=== PATIENT | female | born 1995 | race Caucasian/White ===

== ENCOUNTER 2020-03-21 08:02 | Inpatient (IN) | payer BC, MEDICAID ==
[2020-03-21] VITALS (15 sets, daily range): BP systolic 100–126; BP diastolic 52–81
[~2020-03-21] VITALS: Ht 162.6 cm; Wt 49.2 kg
[2020-03-21 08:24] LABS: CLARITY,URINE SLIGHTLY CLOUDY (Clear); COLOR,URINE YELLOW (Yellow); GLUCOSE, URINE NEGATIVE (Neg); KETONES,URINE >=80 mg/dl (Neg); LEUKOCYTE ESTERASE ,URINE NEGATIVE (Neg); NITRITES, URINE NEGATIVE (Neg); OCCULT BLOOD,URINE MODERATE (Neg); PROTEIN,URINE 100 mg/dl (Neg); UA COLLECTION TYPE CLN CATCH MIDSTREAM
[2020-03-21 08:30] LABS: SQUAMOUS EPITHELIAL CELL,UR MANY /LPF (FEW)
[2020-03-21 08:32] LABS: BACTERIA,URINE 1+ /HPF (Neg)
[2020-03-21 08:33] LABS: WBC,URINE 0-4 /HPF (0-4)
[2020-03-21 08:34] LABS: MUCUS STRANDS FEW /LPF (Neg); TRANSITIONAL EPI CELLS,URINE FEW /HPF
[2020-03-21 09:09] LABS: BASOPHILS % (AUTO) 0.2 % (0-1); EOSINOPHILS % (AUTO) 0 % (0-6); HEMATOCRIT 43.7 % (35.0-45.0); HEMOGLOBIN 14.8 g/dl (12.0-16.0); LYMPHOCYTES # (AUTO) 1.1 X10'3 (1.1-4.8); LYMPHOCYTES % (AUTO) 7.4 % (21-51); MEAN CORPUSCULAR HEMOGLOBIN 31.8 PG (27.0-31.0); MEAN CORPUSCULAR HGB CONC 33.8 g/dL (33.0-36.5); MEAN CORPUSCULAR VOLUME 94.1 FL (78-98); MEAN PLATELET VOLUME 8.6 FL (7.4-10.4); MONOCYTES # (AUTO) 1.1 X10'3 (0-0.9); MONOCYTES % (AUTO) 7.2 % (2-12); NEUTROPHILS # (AUTO) 13.1 X10'3 (1.8-7.7); NEUTROPHILS % (AUTO) 85.2 % (42-75); PLATELET COUNT 163 X10'3 (140-440); RED BLOOD COUNT 4.65 X10'6 (4.20-5.60); RED CELL DISTRIBUTION WIDTH 13.1 % (11.5-14.5); WHITE BLOOD COUNT 15.3 X10'3 (4.5-11.0)
[2020-03-21 09:37] LABS: ALANINE AMINOTRANSFERASE 15 U/L (12-78); ALBUMIN 4.4 G/DL (3.4-5.0); ALBUMIN/GLOBULIN RATIO 1.2 (1.1-1.5); ALKALINE PHOSPHATASE 74 IU/L (46-116); ANION GAP 15 (8-16); ASPARTATE AMINO TRANSFERASE 13 U/L (10-37); BLOOD UREA NITROGEN 14 MG/DL (7-18); BUN/CREATININE RATIO 17.7 (6.6-38.0); CALCIUM 8.9 MG/DL (8.5-10.1); CHLORIDE 99 MMOL/L (99-107); CREATININE 0.79 MG/DL (0.40-0.90); GLUCOSE 76 MG/DL (70-104); LIPASE 65 U/L (73-393); POTASSIUM 3.5 MMOL/L (3.5-5.1); SODIUM 138 MMOL/L (135-145); TOTAL CARBON DIOXIDE 24.2 MMOL/L (24-32); eGFR 90 ML/MIN
[2020-03-21] MEDS ORDERED: ringers solution, lacted 1,000 ML IV ONE (09:40)
[2020-03-21] MEDS ORDERED: famotidine/PF 10 mg/ml inj IV ONE ×2 (09:40→15:14)
[2020-03-21] MEDS ORDERED: ketorolac tromethamine 15mg/ml inj. IV ONE (09:40)
[2020-03-21] MEDS ORDERED: morphine 4 MG/ML inj SYRINge IV ONE (09:40)
[2020-03-21] MEDS ORDERED: iohexol 300mg/ml 100ml inj. ONE (09:48)
[2020-03-21 09:57] LABS: HCG SERUM QL NEGATIVE
[2020-03-21] MEDS ORDERED: NO HOME MEDS (12:22)
[2020-03-21] MEDS ORDERED: acetaminophen 650mg rectal suppository RC PRN (12:30)
[2020-03-21] MEDS ORDERED: metoclopramide 5 mg/ml inj IV PRN (12:30)
[2020-03-21] MEDS ORDERED: morphine 2 MG/ML inj. syringe IV PRN ×2 (12:30)
[2020-03-21] MEDS ORDERED: ondansetron/PF 4mg/2ml inj IV PRN (12:30)
[2020-03-21] MEDS ORDERED: potassium Cl 20 mEq SR tablet PO PRN ×2 (12:30)
[2020-03-21] MEDS ORDERED: magnesium 2GM in 50ml NS 50 ML IV PRN (12:30)
[2020-03-21] MEDS ORDERED: diphenhydrAMINE 25mg capsule PO PRN (12:30)
[2020-03-21] MEDS ORDERED: potassium CL 10mEq/100ml bag 100 ML IV PRN ×2 (12:30)
[2020-03-21] MEDS ORDERED: mag hydrox/Alum hydrox/simeth 30ml oral suspension PO PRN (12:30)
[2020-03-21] MEDS ORDERED: magnesium hydroxide 30ml (MOM) UD suspension PO PRN (12:30)
[2020-03-21] MEDS ORDERED: HYDROcodone/acetaminophen 5mg/325mg tablet PO PRN (12:30)
[2020-03-21] MEDS ORDERED: HYDROcodone/acetaminophen 10/325mg tab PO PRN ×2 (12:30→16:25)
[2020-03-21] MEDS ORDERED: magnesium Cl slow-release 64mg tablet PO PRN (12:30)
[2020-03-21] MEDS ORDERED: magnesium 4gm in 100ml NS 100 ML IV PRN (12:30)
[2020-03-21] MEDS ORDERED: acetaminophen 325mg tablet PO PRN ×2 (12:30)
[2020-03-21] MEDS ORDERED: bisacodyl 10mg suppository rectal RC PRN (12:30)
[2020-03-21] MEDS: normal saline 1000ml 1,000 ML IV SCH (12:51)
--- NOTE | 2020-03-21 13:47 | NUR ---
Patient in room ED 14. I have received report from ED nurse and had the opportunity to ask questions and assume patient care.
[2020-03-21] MEDS ORDERED: BUPIVAcaine/PF 2.5 mg/ml (0.25%) 30ml vial ONE (14:03)
[2020-03-21] MEDS ORDERED: LIDOcaine 1% 30ml preserv. free vial ONE (14:03)
[2020-03-21] MEDS ORDERED: sevoflurane 250ml liquid IH ONE (15:10)
[2020-03-21] MEDS ORDERED: midazolam 2 mg/2 ml injection ONE (15:15)
[2020-03-21] MEDS ORDERED: fentaNYL/PF 50MCG/1 ML 2ML syringe ONE (15:15)
--- NOTE | 2020-03-21 15:29 | NUR ---
Pt taken to OR. Report given to recovery nurse [facility].
[2020-03-21] MEDS ORDERED: ceFOXitin 1000 MG inj ONE (15:34)
[2020-03-21] MEDS ORDERED: propofol inj 20 ML IV ONE (15:34)
[2020-03-21] MEDS ORDERED: dexamethasone sod phosphate 4mg/ml inj. ONE (15:34)
[2020-03-21] MEDS ORDERED: LIDOcaine 2% (20mg/ml) 5ml vial ONE (15:34)
[2020-03-21] MEDS ORDERED: rocuronium 10mg/ml inj IV ONE (15:35)
[2020-03-21] MEDS ORDERED: ondansetron/PF 4mg/2ml inj ONE (15:35)
[2020-03-21] MEDS ORDERED: piperacillin/tazo 3.375gm/50ml 50 ML IV SCH (16:00)
[2020-03-21] MEDS ORDERED: glycopyrrolate 0.2mg/ml inj ONE (16:17)
[2020-03-21] MEDS ORDERED: neostigmine methylsulfate 1 MG/ML 10ml vial ONE (16:17)
--- NOTE | 2020-03-21 16:30 | NUR ---
Received from OR via SURGICAL BED , accompanied by Anesthesiologist MARYCRUZ and report given by Anesthesiolgist. PATIENT WITH 3 ABDOMINAL BANDAIDS PRESENT THAT ARE CDI. VSS. DENIES PAIN. 10L MASK ON WITH 100% SATURATIONS. 20G PIV IN RIGHT UE RUNNING LR AT 100. PILL0W TO ABDOMENT PROVIDED FOR HICCUPS AND SPLINTING Addendum: 03/21/20 at 1649 by Justin Parker RN, RN Amended: Links added.
--- NOTE | 2020-03-21 17:20 | NUR ---
Report called to receiving nurse. Transferred via SURGICAL BED WITH GLASSES, BRA AND MASK, NO OTHER Belongings . Special Issues communicated to receiving nurse RJ RAPHAEL. VSS. DENIES PAIN. DRESSINGS CDI. MOTHER AT BEDSIDE. Addendum: 03/21/20 at 1731 by Justin Parker RN RN Amended: Links added.
[2020-03-21] MEDS: piperacillin/tazo 3.375gm/50ml 50 ML IV SCH (17:30)
--- NOTE | 2020-03-21 18:41 | NUR ---
Problems reprioritized. Patient report given, questions answered & plan of care reviewed with IJEOMA Hook. Pt A&O x4, tolerating clean liquids well. medicated for pain x1. Resting comfortably at this time. mother at bedside.
--- NOTE | 2020-03-21 18:46 | NUR ---
Patient in room [facility]. I have received report from Sherita RAPHAEL and had the opportunity to ask questions and assume patient care.
[2020-03-21] MEDS: K and/or MAG REPLACEMENT MC SCH (19:35)
[2020-03-22] VITALS: BP 113/67
[2020-03-22] MEDS: normal saline 1000ml 1,000 ML IV SCH ×2 (00:22→10:21)
[2020-03-22] MEDS: piperacillin/tazo 3.375gm/50ml 50 ML IV SCH ×2 (00:23→08:11)
[2020-03-22] MEDS: HYDROcodone/acetaminophen 5mg/325mg tablet PO PRN ×2 (00:24→08:16)
[2020-03-22 04:00] VITALS: BP 98/56
[2020-03-22 06:04] LABS: BASOPHILS % (AUTO) 0.1 % (0-1); EOSINOPHILS % (AUTO) 0 % (0-6); HEMATOCRIT 35.1 % (35.0-45.0); HEMOGLOBIN 12.2 g/dl (12.0-16.0); LYMPHOCYTES # (AUTO) 0.8 X10'3 (1.1-4.8); LYMPHOCYTES % (AUTO) 8.7 % (21-51); MEAN CORPUSCULAR HEMOGLOBIN 32.5 PG (27.0-31.0); MEAN CORPUSCULAR HGB CONC 34.8 g/dL (33.0-36.5); MEAN CORPUSCULAR VOLUME 93.3 FL (78-98); MONOCYTES # (AUTO) 1.1 X10'3 (0-0.9); MONOCYTES % (AUTO) 11.2 % (2-12); NEUTROPHILS # (AUTO) 7.7 X10'3 (1.8-7.7); PLATELET COUNT 145 X10'3 (140-440); RED BLOOD COUNT 3.76 X10'6 (4.20-5.60); RED CELL DISTRIBUTION WIDTH 12.9 % (11.5-14.5); WHITE BLOOD COUNT 9.6 X10'3 (4.5-11.0)
[2020-03-22 06:30] LABS: ALANINE AMINOTRANSFERASE 12 U/L (12-78); ALBUMIN 3.2 G/DL (3.4-5.0); ALKALINE PHOSPHATASE 52 IU/L (46-116); ANION GAP 13 (8-16); ASPARTATE AMINO TRANSFERASE 7 U/L (10-37); BILIRUBIN,TOTAL 1.2 MG/DL (0.1-1.0); BLOOD UREA NITROGEN 6 MG/DL (7-18); BUN/CREATININE RATIO 6.6 (6.6-38.0); CALCIUM 8.5 MG/DL (8.5-10.1); CHLORIDE 103 MMOL/L (99-107); CREATININE 0.91 MG/DL (0.40-0.90); GLUCOSE 96 MG/DL (70-104); MAGNESIUM 1.8 MG/DL (1.5-2.4); POTASSIUM 4.5 MMOL/L (3.5-5.1); SODIUM 140 MMOL/L (135-145); TOTAL CARBON DIOXIDE 24.4 MMOL/L (24-32); TOTAL PROTEIN 6.4 G/DL (6.4-8.2); eGFR 77 ML/MIN
--- NOTE | 2020-03-22 06:34 | NUR ---
Problems reprioritized. Patient report given, questions answered & plan of care reviewed with Adriana RAPHAEL.
--- NOTE | 2020-03-22 06:36 | NUR ---
Patient in room [facility] 346. I have received report from Miladys RAPHAEL and had the opportunity to ask questions and assume patient care.
[2020-03-22 07:00] VITALS: BP 106/81
[2020-03-22] MEDS: K and/or MAG REPLACEMENT MC SCH (08:00)
[2020-03-22 11:00] VITALS: BP 111/71
[2020-03-22] MEDS ORDERED: HYDR-4383 PO (12:38)
--- NOTE | 2020-03-22 12:42 | NUR ---
Dr. Connolly seen patient, he is aware that Dr. Sanchez is going to send patient home. Dr. Connolly said he is okay with it.
--- NOTE | 2020-03-22 13:45 | NUR ---
Discharged patient home, discharge instructions given to patient. Patient verbalized understanding of all instructions given. Peripheral IV catheter removed, tip intact. Instructed patient to ensure she has all her belongings with her before leaving. Written new prescription for [place] given to patient. Instructed patient to check with her baby's judge clerk about her baby while taking her medicines. Patient was picked up by her mother upon discharge
[2020-03-22] MEDS ORDERED: lactobacillus rhamnosus 10,000 MMU CELLS/CAPSULE PO SCH (20:00)
== END 2020-03-22 13:42 | disposition home or self-care (01) | DRG 343 ==
LOC: ER 08:03 → ED HOLD 12:26 → SUR 3N 14:04 → CMPBEDREQ 22:53
PROVIDERS: ADMIT Family Medicine; ATTEND Surgery
PROC: 0DTJ4ZZ Resection of Appendix, Percutaneous Endoscopic Approach (ICD-10-PCS; principal; 2020-03-21 15:10)
DX: K35.80 Unspecified acute appendicitis (principal); F12.10 Cannabis abuse, uncomplicated; Z83.3 Family history of diabetes mellitus; Z72.89 Other problems related to lifestyle
CPT/HCPCS: 96374; 96375; 99285; Z7506; Z7508; 36415; 74177; 80053; 81001; 83690; 83735; 84100; 84703; 85025; 87040; 87081; A4215; A4618; A7000; G0378; J0694; J1100; J1885; J2001; J2250; J2270; J2405; J2543; J2704; J2710; J3010; J3490; J7030; J7120; Q9967